=== PATIENT | female | born 1975 | race Caucasian/White ===

== ENCOUNTER 2024-09-27 15:00 | Outpatient (AMB) | payer OTHER, SELFPAY ==
--- NOTE | 2024-09-27 15:03 | A.OFFVIS_ITS ---
Vital Signs 09/27/24 15:18 Height 5 ft 2 in Weight 122 lb 2.177 oz BMI 22.3 BP 96/54 L Blood Pressure Location Lt brachial Position Sitting Pulse 68 Pulse Source Pulse Oximeter Pulse Oximetry (%) 97 Oxygen Delivery Method Room Air Intake Visit Reasons: Colonoscopy Screening Intake Note: Relevant Flags or Indicators ? Requires Tracer Bullet Charging Machine Operator? Serg Jo presents in office today for a scheduled colonoscopy consult -- First colo. CC; No recent labs, diagnostics, or med orders placed. ? Relevant GI Sx as reported per pt? None ? Hx of any recent surgeries? None ? Pertinent FMHx? Maternal Uncle - Colon Cancer Mother and sisters - Polypectomy. Tracer Bullet Charging Machine Operator Required: No Allergies No Known Allergies Allergy (Verified 09/27/24 15:18) HPI HPI Colonoscopy Screening: Details: 49 year old? female with no significant past medical history is here today for pre colonoscopy screening.? Patient was sent to us by hier PCP.? This is her first colonoscopy screening.? Patient denies any gastrointestinal symptoms in the past or at present.? Maternal uncle was diagnosed with colon cancer in his 60s. Patient never had anesthesia in the past..? Negative for history of sleep apnea.? Denies any history of cardiac, renal, pulmonary, or hepatic disease.?? No history of infectious? diseases like hepatitis A, B, C, HIV or tuberculosis.? Patient is not on any anticoagulation [facility] Social History (Updated 09/27/24 @ 15:[address] [facility]) Alcohol intake: never Patient Tobacco Use Status: Never used Tobacco Use of substances other than those prescribed or required for medical reasons: No Review of Systems Const Denies weight gain and Denies weight loss ENT Reports no additional complaints, Denies dysphagia and Denies odynophagia Card Reports no additional complaints Resp Reports no additional complaints GI Denies abdominal pain, Denies belching, Denies melena, Denies bloating, Denies change in bowel habits, Denies dysphagia, Denies excessive flatus, Denies dyspepsia, Denies heartburn, Denies diarrhea, Denies loose stools, Denies nausea, Denies odynophagia and Denies vomiting Musc Reports no additional complaints Neuro Reports no additional complaints Psych Reports no additional complaints Endo Reports no additional complaints Physical Exam Vital Signs: Last Vital Signs Pulse 68 09/27/24 15:18 BP 96/54 L 09/27/24 15:18 Pulse Ox 97 09/27/24 15:18 Oxygen Delivery Method Room Air 09/27/24 15:18 BMI result Body Mass Index 22.3 Const General: healthy appearing, no acute distress and well developed Nutritional Appearance: well nourished Orientation/consciousness: patient oriented x3 Resp Effort & Inspection: normal respiratory effort, able to speak in complete sentences, no tracheal deviation and symmetric chest movement Auscultation: clear to auscultation bilaterally Cardio Rate: regular rate GI Inspection: Yes normal to inspection and No distended Palpation (GI): Soft to palpation, not firm, nontender and No hepatosplenomegaly present Auscultation: normal bowel sounds General: Yes no CVA tenderness Back/Spine/Pelvis Back: no CVA tenderness Skin General skin exam: elasticity normal, turgor normal and dry skin Neuro General: patient oriented x3 Psych Appearance: grossly normal Mental Status: mental status grossly normal Assessment & Plan Assessment & Plan (1) Screen for colon cancer: Code(s): Z12.11 - Encounter for screening for malignant neoplasm of colon Plan Patient denies any GI, cardiac or respiratory symptoms.? Denies any issues with anesthesia in the past.? Denies any history of sleep apnea.? No history infectious diseases in the past or present.? Not on any anticoagulation therapy.? Family history of CRC.? Patient denies melena, hematochezia, unintentional weight loss or ribbon like stools.? Discussed at length the pre- procedure,? prep, diet & medications as well as what to expect prior, during and after the procedure.?? Stressed the importance of good bowel prep.? Recommended the use of Vaseline or Calmoseptine OTC & baby wipes with bowel movements to promote comfort.? ?Patient verbalizes understanding and agrees to plan of care.? She was given the opportunity to ask questions and all questions answered.? We will see her after the procedure.? Medications: New bisacodyl (Dulcolax (bisacodyl)) take 4 tabs at noon the day before your colonoscopy 20 mg (4 x 5 mg) PO ONCE 4 tabs 0RF 1 day Z12.11 - Encounter for screening for malignant neoplasm of colon polyethylene glycol 3350 (Miralax) As directed by gastroenterology department at [facility] 238 grams PO ONCE 238 grams 0RF Z12.11 - Encounter for screening for malignant neoplasm of colon Coding Level of Care Code New Pt Level 3 (60161) Diagnoses Screen for colon cancer Z12.11 Time Spent (min) 40 Comment 30 minutes spent with patient and additional 10 minutes spent reviewing her records
[2024-09-27 15:18] VITALS: BP 96/54; PULSE 68; O2SAT 97; BMI 22.3
== END 2024-09-27 16:00 | disposition home or self-care (01) ==
PROVIDERS: PCP Student in an Organized Health Care Education/Training Program; Visit Provider Nurse Practitioner Family
DX: Z12.11 Encounter for screening for malignant neoplasm of colon (principal); Z01.818 Encounter for other preprocedural examination
CPT/HCPCS: 99203

== ENCOUNTER → 2024-09-27 15:00 | Outpatient (BNVA) | payer OTHER, SELFPAY | PROVIDERS: PCP Student in an Organized Health Care Education/Training Program; Visit Provider Nurse Practitioner Family ==

== ENCOUNTER 2025-08-01 10:10 | Emergency (ER) | payer OTHER, SELFPAY ==
[2025-08-01 10:23] VITALS: BP 121/56; PULSE 70; RESP 18; TEMP 36.6; O2SAT 100; BMI 21.9
--- NOTE | 2025-08-01 10:32 | ED_ITS ---
HPI - Ear Problem General Chief complaint: Ear Problems Stated complaint: Q tip cotton stuck in ear Time Seen by Provider: 08/01/25 10:26 Source: patient Mode of arrival: ambulatory Limitations: no limitations History of Present Illness ED Provider: JUSTINA JIMENES PA-C HPI Narrative: 50-year-old female presents to the ED today with concerns of the end of a Q-tip stuck in right ear. States this occurred just prior to arrival in the ED. No hearing changes. No pain. No discharge. No other concerns. Related Data Previous Rx's ?Medication ?Instructions ?Recorded bisacodyl 5 mg tablet,delayed 20 mg (4 x 5 mg) PO ONCE 1 day #4 09/27/24 release (Dulcolax (bisacodyl)) tabs polyethylene glycol 3350 17 238 g PO ONCE #238 grams 1 11/27/23 gram/dose oral powder (Miralax) Allergies Allergy/AdvReac Type Severity Reaction Status Date / Time No Known Allergies Allergy Verified 08/01/25 10:24 Review of Systems Review of Systems: Yes all other systems are reviewed and are negative [facility] Past Medical History Attestation statement: The following information was validated with the patient. Source: old records reviewed and nursing notes reviewed Social History Social History Alcohol intake: never Patient Tobacco Use Status: Never used Tobacco Advance Directives: No Advance Directives Information Provided: Yes Do you have a plan to hurt others: No Plan Physical Exam Vital Signs: Vital Signs: Last Vital Signs Temp 97.9 F 08/01/25 10:50 Pulse 70 08/01/25 10:50 Resp 18 08/01/25 10:50 BP 121/56 L 08/01/25 10:50 Pulse Ox 100 08/01/25 10:50 O2 Del Method Room Air 08/01/25 10:50 BMI result Body Mass Index 21.9 vital signs stable General: Well appearing, in no acute distress. Skin: Warm, dry, intact. No rashes or lesions. Head: Normocephalic, atraumatic. EENT: Hearing is intact b/l. piece of cotton noted in left EAC. Cardiac: Chest wall symmetric. RRR Lungs: Normal respiratory effort without accessory muscle use Ext: Upper and lower extremities atraumatic Neuro: AOx3. Normal speech. Ambulating with steady gait. Procedures FB Removal Ear Location: ear canal (L) Foreign Body Suspected: other (cotton) TM intact pre-procedure: unable to visualize Foreign Body Removed: yes Foreign Body Removal Technique: forceps Tympanic Membrane Intact Post Procedure: Yes Patient Tolerated Procedure: well Complications: none Medical Decision Making Medical Decision Making MDM Narrative: 50-year-old female presents to the ED today with concerns of the end of a Q-tip stuck in right ear. vital signs stable. Noted cotton in left EAC, successfully removed w/ alligator forceps. No trauma to left EAC or TM. Hearing intact. Patient has remained stable throughout ED visit today. Discussed worrisome signs and symptoms and when to return to the ED. All questions answered at this time. Patient is agreeable with disposition and stable for discharge. Differential Diagnosis Differential Diagnoses: The differential diagnosis associated with the presentation includes as above. Admission/Observation not indicated. Social Determinants Patient?s care significantly limited by Social Determinants of Health including: Other Social Determinant of Health Critical Care Time Critical Care Time Critical Care Time: No Discharge Plan Discharge Clinical Impression: Foreign body in ear Patient Disposition: Home, Self-Care Instructions: Ear Foreign Body (ED) Additional Instructions: You were evaluated in the ED today for Q-tip stuck in your right ear. This was removed today. There is no residual trauma to the ear or ear drum. Follow up with your primary care as needed. Return with any new or worsening symptoms. In the case of an emergency call 911. Prescriptions: No Action bisacodyl [Dulcolax (bisacodyl)] 5 mg tablet,delayed release (DR/EC) 20 mg PO ONCE 1 Days Qty: 4 0RF Rx Instructions: take 4 tabs at noon the day before your colonoscopy polyethylene glycol 3350 [Miralax] 17 gram/dose powder 238 g PO ONCE Qty: 238 0RF Rx Instructions: As directed by gastroenterology department at [facility] Referrals: Sonia Avalos MD [Primary Care Provider, Family Practice] Interventions: ED Discharge Assessment Last Done: 08/01/25 10:50 Discharge Date/Time: 08/01/25 10:50 Print Language: Tristanian
[2025-08-01 10:50] VITALS: BP 121/56; PULSE 70; RESP 18; TEMP 36.6; O2SAT 100
--- OUTSIDE RECORDS SUMMARY | 2025-08-01 13:07 | XMS_ITS | Encounter Summary ---
Author Organization [facility] Address [address] [place] [id number] Phone Care Team Providers Care Us Customs And Border Officer Name Role Phone Sonia Avalos MD Primary Care Provider [phone] [phone] Encounter Details Date Type Department Care Team (Late st Contact Info) Description 03/18/2022 Ancillary Orders [facility],Outside Imaging [address] [place] [address] System, Provider Not In, [facility] [address] [address] Social History Tobacco Use Types Packs/Day Years Used Date Smoking Tobacco: Never Assessed Child or Family Care Answer Date Record ed Do you have problems with on e of the following making it difficult for you to work, study, or receive health care? No 10/09/2021 Education Answer Date Recorded Are you interested in help w ith more adult education (for example, completing high school, GED, job training, learning the Turkish language, technical skills, or developing parenting skills)? No 10/09/2021 Food Answer Date Recorded Within the past 6 months we worried whether our food would run out before we got money to buy more. Never True 10/09/2021 Within the past 6 months the food we bought just didn't last and we didn't have enough money to get more. Never True Residential Stability Answer Date Recor ded What is your housing situation today? I have adalberto sing 10/09/2021 How many times have you move d in the past 12 months? Zero (I did not move) 10/09/2021 Paying for Meds Answer Date Recorded Do you have trouble paying for medicines? No 10/09/2021 Paying Utility Bills Answer Date Record ed Do you have trouble paying your heating or elect ricity bill? No 10/09/2021 Transportation Answer Date Recorded Has the lack of transportati on kept you from medical appointments or from getting medications? No 10/09/2021 Unemployment Answer Date Recorded Are you currently unemployed or working on a part-time or temporary basis, and looking for work? No 10/09/2021 Comments No Sex and Gender Information Value Date Recorded Sex Assigned at Not on file Legal Sex Female 9:32 PM EDT Gender Identity Not on file Sexual Orientation Not on file documented as of this encounter Plan of Treatment Not on file documented as of this encounter Results * Mammogram Outside (No Interpretation) (09/14/2017 12:05 AM EDT) Narrative SYSTEMGENERATED, DOCUMENTATION - 03/18/2022 7:16 AM EDT This study is for PACS storage only and not for interpretation. us Provider Not In System PhD IMG OUTSIDE IMAGING W /OUT INTERPRETATION Final Result documented in this encounter Visit Diagnoses Not on filedocumented in this encounter Additional Health Concerns Assessment Noted Time PHQ-2 Depression Total Score: 0 10/09/20 21 10:36 AM EST documented as of this encounter Care Teams Us Customs And Border Officer Relationship Specialty Start Date End Date Sonia Avalos MD [address] [place] [address], [address] [place] [address] [email or web address] PCP - General Family Medicine 07/02/21 documented as of this encounter Additional Source Comments The information contained in this document represents components of the legal health record. It is not the complete legal health record.[facility]
--- OUTSIDE RECORDS SUMMARY | 2025-08-01 13:07 | XMS_ITS | Encounter Summary ---
Author Organization [facility] Address [address] [facility] [address] [place] [address] Phone Care Team Providers Care Power System Operator Name Role Phone Sonia Avalos MD Primary Care Provider [phone] Encounter Details Date Type Department Care Team (Late st Contact Info) Description 01/28/2022 Procedure Pass [facility] - [address] [place] [address] Social History Tobacco Use Types Packs/Day Years [...] high school, GED, job training, learning the Nepalese language, technical skills, or developing parenting skills)? [...] on file documented as of this encounter Visit Diagnoses Not on filedocumented in this encounter Additional Health Concerns Assessment Noted Time PHQ-2 Depression Total Score: 0 10/09/20 21 10:36 AM EST documented as of this encounter Care Teams Power System Operator Relationship Specialty Start Date End Date Sonia Avalos MD [address] [place] [address], [address] [place] [address] [email or web address] PCP - General Family Medicine 07/02/21 documented as of this encounter Additional Source Comments The information contained in this document represents components of the legal health record. It is not the complete legal health record.[facility]
--- OUTSIDE RECORDS SUMMARY | 2025-08-01 13:08 | XMS_ITS | Encounter Summary ---
Author Organization [facility] Address [address] [place] [address] Phone Care Team Providers Care Corner Brace Block Machine Operator Name Role Phone Sonia Avalos MD Primary Care Provider [phone] [phone] Encounter Details Date Type Department Care Team (Late st Contact Info) Description 03/17/2022 Ancillary Orders [facility],Outside Imaging [address] [place] [address] System, Provider Not In, [facility] [address] [address] Social History Tobacco Use Types Packs/Day Years [...] high school, GED, job training, learning the Bahamian language, technical skills, or developing parenting skills)? [...] Time PHQ-2 Depression Total Score: 0 10/09/20 10:36 AM EST documented as of this encounter Care Teams Corner Brace Block Machine Operator Relationship Specialty Start Date End Date Sonia Avalos MD [address] [place] [address], [facility] [address] [place] [address] [email or web address] PCP - General Family Medicine 07/02/21 documented as of this encounter Additional Source Comments The information contained in this document represents components of the legal health record. It is not the complete legal health record.[facility]
--- OUTSIDE RECORDS SUMMARY | 2025-08-01 13:08 | XMS_ITS | Encounter Summary ---
Author Organization [facility] Address [address] [facility] [address] [place] [address] Phone Care Team Providers Care Human Resources Services Specialist Name Role Phone Sonia Avalos MD Primary Care Provider [phone] Encounter Details Date Type Department Care Team (Late st Contact Info) Description 09/07/2023 Procedure Pass [facility] - [address] [place] [address] Social History Tobacco Use Types Packs/Day Years [...] high school, GED, job training, learning the British language, technical skills, or developing parenting skills)? [...] basis, and looking for work? No 10/09/2021 Digital Access Answer Date Recorded No 04/17/2023 No 04/17/2023 Reliable internet access at home? Not on file 04/17/2023 Device with a working camera? Not on file Comments No Sex and Gender Information Value [...] documented as of this encounter Care Teams Human Resources Services Specialist Relationship Specialty Start Date End Date Sonia Avalos MD [address] [place] [address], [address] [place], [place] [id number] [email or web address] PCP - General Family Medicine 07/02/21 documented as of this encounter Additional Source Comments The information contained in this document represents components of the legal health record. It is not the complete legal health record.[facility]
--- OUTSIDE RECORDS SUMMARY | 2025-08-01 13:08 | XMS_ITS | Encounter Summary ---
Author Organization [facility] Address [address] [place] [address] Phone Care Team Providers Care Ancillary Services Manager Name Role Phone Sonia Avalos MD Primary Care Provider [phone] Encounter Details Date Type Department Care Team (Late st Contact Info) Description 03/18/2022 Ancillary Orders [facility],Outside Imaging [address] [place] [address] System, Provider Not In, [facility] [address] [address] Social History Tobacco Use Types Packs/Day Years [...] high school, GED, job training, learning the Finnish language, technical skills, or developing parenting skills)? [...] documented as of this encounter Results * US Breast Outside (No Interpretation) (09/14/2017 12:00 AM EDT) Narrative SYSTEMGENERATED, DOCUMENTATION - 03/18/2022 7:15 AM EDT This study is for PACS storage only and not for interpretation. us Provider Not In System PhD IMG OUTSIDE IMAGING W /OUT INTERPRETATION Final Result documented in this encounter Visit Diagnoses Not on filedocumented in this encounter Additional Health Concerns Assessment Noted Time PHQ-2 Depression Total Score: 0 10/09/20 21 10:36 AM EST documented as of this encounter Care Teams Ancillary Services Manager Relationship Specialty Start Date End Date Sonia Avalos MD [address] [place] [address], [address] [place] [address] [email or web address] PCP - General Family Medicine 07/02/21 documented as of this encounter Additional Source Comments The information contained in this document represents components of the legal health record. It is not the complete legal health record.[facility]
--- OUTSIDE RECORDS SUMMARY | 2025-08-01 13:08 | XMS_ITS | Encounter Summary ---
Author Organization [facility] Address [address] [facility] [address] [place] [address] Phone Care Team Providers Care Hydrostatic Tubing Tester Name Role Phone Sonia Avalos MD Primary Care Provider [phone] Encounter Details Date Type Department Care Team (Late st Contact Info) Description 01/28/2022 Transcribe Orders Virtual Department [address] [place] [address] Sonia Avalos MD [address] [place] [address], [address] [place] [address] [email or web address] Breast screening (Primary Dx) Social History Tobacco Use Types Packs/Day Years [...] high school, GED, job training, learning the Bulgarian language, technical skills, or developing parenting skills)? [...] and looking for work? No 10/09/2021 Comments Unknown Sex and Gender Information Value Date Recorded Sex Assigned at Not on file Legal Sex Female 9:32 PM EDT Gender Identity Not on file Sexual Orientation Not on file documented as of this encounter Plan of Treatment Not on file documented as of this encounter Results * BI MAMMOGRAM SCREENING WITH TOMOSYNTHESIS WITH CAD (BILATERAL) (02/24/2022 2:03 PM EDT) Anatomical Region Laterality Modality Breast Left, Breast Right, Breast Bilateral Bila teral Mammography 03/10/2022 12:5 1 PM EDT Impressions 03/10/2022 12:53 PM EDT No mammographic evidence of malignancy. Recommend annual surveillance. BI-RADS CATEGORY: 2 - Benign finding. DENSITY: The breast tissue is extremely dense, which lowers the sensitivity of mammography. Narrative 03/10/2022 12:53 PM EDT 46-year-old female with no current breast symptoms. Comparison made to previous on 04/08/2016 and 01/02/2014. Interpretation made in conjunction with computer-aided detection and tomosynthesis. The breasts are extremely dense, which lowers the sensitivity of mammography. Mild increase in number of benign bilateral scattered calcifications. There are no suspicious masses, areas of architectural distortion, or suspicious clusters of microcalcifications. Procedure Note Yamil Brumfield MD - 03/10/2022 46-year-old female with no current breast symptoms. Comparison made toprevious on 04/08/2016 and 01/02/2014. Interpretation made in conjunctionwith computer-aided detection and tomosynthesis. The breasts are extremely dense, which lowers the sensitivity ofmammography. Mild increase in number of benign bilateral scatteredcalcifications. There are no suspicious masses, areas of architectural distortion, orsuspicious clusters of microcalcifications. IMPRESSION: No mammographic evidence of malignancy. Recommend annual surveillance. BI-RADS CATEGORY: 2 - Benign finding. DENSITY: The breast tissue is extremely dense, which lowers thesensitivity of mammography. us Sonia Avalos MD IMG MG EXAMS Final Res ult documented in this encounter Visit Diagnoses Diagnosis Breast screening- Primary Breast screening, unspecified Breast screening Breast screening, unspecified documented in this encounter Additional Health Concerns Assessment Noted Time PHQ-2 Depression Total Score: 0 10/09/20 21 10:36 AM EST documented as of this encounter Care Teams Hydrostatic Tubing Tester Relationship Specialty Start Date End Date Sonia Avalos MD [address] [place] [address], [address] [place] [address] [email or web address] PCP - General Family Medicine 07/02/21 documented as of this encounter Additional Source Comments The information contained in this document represents components of the legal health record. It is not the complete legal health record.[facility]
--- OUTSIDE RECORDS SUMMARY | 2025-08-01 13:08 | XMS_ITS | Clinical Summary ---
Author Organization [facility] Address [address] [facility] [address] [place] [address] Phone Care Team Providers Care Editing Intern Name Role Phone Sonia Avalos MD Primary Care Provider +1 -[phone] Allergies No known active allergies Medications No known medications Active Problems Problem Noted Date Diagnosed Date Visit for suture removal 07/26/2024 Assessment & Plan (07/26/2024 10:31 AM EDT): Deysi presents for suture removal. All #5 sutures were removed today of the right shoulder-no issues or complications. Steri-Strips were placed over top. I reviewed ways to decrease scarring with vitamin E. We discussed sunscreen. I informed her that the biopsy was benign and this was reassuring. I informed her to call if there are any other issues or concerns. She understands and agrees. Vegan 10/09/2021 Chronic pain of both knees 10/09/2021 Assessment & Plan (10/09/2021 10:01 PM EST): Worse w/ sitting and w/ insomnia. I think low risk for autoimmune disease, will check labs today to evaluate for structural cause, also discussed neural circuit pain and nonstructural causes. Follow up once labs are done. Migraine Assessment & Plan (10/09/2021 9:59 PM EST): Induced by lack of sleep, no red flags. Follow up as needed. Breast lump Overview (10/09/2021): left breast in 20's - biopsy benign Assessment & Plan (10/09/2021 10:00 PM EST): S/P breast biopsies that have been benign. Would like to continue screening mammograms prior to 48 which I have ordered. Resolved Problems Problem Noted Date Diagnosed Date Resolved Date Skin lesion of right upper extremity 07/14/2024 07/26/2024 Assessment & Plan (07/14/2024 11:10 AM EDT): Deysi Layton is a 49 y.o. year old female presenting for a skin lesion removal of right shoulder region. Consent was signed and time out was performed. The patient was prepped and draped in the normal sterile fashion. Using 2% lidocaine with epinephrine 2 cc's was used with good anesthetics. Using a 15 blade scalpel the 8 mm in diameter skin lesion was removed without any complications. Measurements: Lesion at its widest point: 1.8 cm Narrowest margin to the incision line, was 1 cm (times 2): 2 cm. The total excised diameter: 1.8 cm + 2 cm = 3.8 cm. The defect was sutured using 4-0 monofilament with # 5 sutures placed. Minimal blood loss. No complications. I sent the biopsy out to pathology today-I will update her with the result. Wound care was discussed. A bandaid was placed overtop. she will follow up in 12 days for suture removal. she understands and agrees. Immunizations Immunization Administration Dates Next Due COVID-19 (Pre-09/13) Pfizer Vaccine, mRNA, PF ,03/11/2021 Tdap 08/08/2013 Family History Medical History Relation Comments Ovarian cancer Maternal Aunt Multiple myeloma Maternal Grandmother Relation Status Comments Maternal Aunt Maternal Grandmother Social History Tobacco Use Types Packs/Day Years Used Date Smoking Tobacco: Never Smokeless Tobacco: Never Child or Family Care Answer Date Record ed Do you have problems with on e of the following making it difficult for you to work, study, or receive health care? No 10/09/2021 Education Answer Date Recorded Are you interested in more education? Not on jasmyne e 10/19/2023 Are you concerned about learning? Not on file 10/19/2023 No 10/19/2023 No 10/19/2023 Food Answer Date Recorded Within the past [...] on file Sexual Orientation Not on file Last Filed Vital Signs Vital Sign Reading Time Taken Comments Blood Pressure 116/66 07/14/2024 10:28 AM EDT Pulse 57 07/26/2024 10:16 AM EDT Temperature 36.5 C (97.7 F) 07/26/2024 10:16 AM EDT Respiratory Rate - - Oxygen Saturation 100% 07/26/2024 10:16 AM EDT Inhaled Oxygen Concentration - - Weight 54.4 kg (120 lb) 07/14/2024 10:28 AM EDT Height 157.5 cm (5' 2 ) 07/26/2024 10:16 AM EDT Body Mass Index 21.95 07/14/2024 10:28 AM EDT Plan of Treatment Health Maintenance Due Date Last Done Comments LIPID PANEL 1973 HEPATITIS C SCREENING 1991 HIV ONE-TIME SCREENING (18-65 YEARS) 1991 PAP SMEAR 02/16/2011 02/17/2008 COLOGUARD 2018 FIT TEST 2018 FOBT 2018 SIGMOIDOSCOPY 2018 VIRTUAL COLONOSCOPY 2018 DEPRESSION SCREENING 10/09/2022 10/09/2021 PNEUMOCOCCAL VACCINES (50+ years) (1 of 1 - PCV) 2023 ZOSTER VACCINES (1 of 2) 2023 Adult Td,Tdap Booster 08/08/2023 08/08/2013 INFLUENZA VACCINE (#1) 2025 COVID-19 VACCINE ( season) 2025 11/18/2021, 04/01/2021, 03/11/2021 MAMMOGRAM 02/27/2026 02/28/2024, 04/0 03/2022, 09/14/2017, Additional history exists COLONOSCOPY 09/27/2034 09/27/2024 COLORECTAL CANCER SCREENING 09/27/2034 SMOKING STATUS SCREENING (Once After 26 Yrs) Completed 07/14/2024 HEPATITIS A VACCINES Aged Out No long er eligible based on patient's age to complete this topic HIB VACCINES Aged Out No longer eligi ble based on patient's age to complete this topic MENINGOCOCCAL VACCINES (ACWY) Aged Out No longer eligible based on patient's age to complete this topic MENINGOCOCCAL VACCINES (B) Aged Out N o longer eligible based on patient's age to complete this topic Medical Devices Not on file Procedures Procedure Name Priority Date/Time Associated Diagnosis Comments COLONOSCOPY FOR RESULT ENTRY ONLY Routine 09/27/2024 10:43 AM EST BI MAMMOGRAM SCREENING WITH TOMOSYNTHESIS WITH CAD (BILATERAL) Routine 02/28/2024 10:55 AM EDT Encounter for screening mammogram for malignant neoplasm of breast from Last 3 Months or Most Recently Relevant to Health Maintenance Results * COLONOSCOPY FOR RESULT ENTRY ONLY (09/27/2024 10:43 AM EST) us Historical Provider HEALTH MAINTENANCE Edited Result - Final * BI MAMMOGRAM SCREENING WITH TOMOSYNTHESIS WITH CAD (BILATERAL) (02/28/2024 10:55 AM EDT) Anatomical Region Laterality Modality Breast Left, Breast Right, Breast Bilateral Bila teral Mammography 03/01/2024 1:19 PM EDT Impressions 03/01/2024 1:54 PM EDT No mammographic evidence of malignancy in either breast. Annual screening mammography is recommended. BI-RADS 1 NEGATIVE The patient will be notified of the results and recommendations. Narrative 03/01/2024 1:54 PM EDT BI MAMMOGRAM SCREENING WITH TOMOSYNTHESIS WITH CAD (BILATERAL) Additional patient information: Screening. COMPARISON: Comparison is made with relevant prior imaging. Breast composition: The breast tissue is extremely dense which lowers the sensitivity of mammography. FINDINGS: There has been no change in the mammographic findings since previous examination. No abnormal masses, suspicious calcifications, or other significant findings are identified mammographically in either breast. Procedure Note Ofelia Myers MD, PhD - 03/01/2024 BI MAMMOGRAM SCREENING WITH TOMOSYNTHESIS WITH CAD (BILATERAL) Additional patient information: Screening. COMPARISON: Comparison is made with relevant prior imaging. Breast composition: The breast tissue is extremely dense which lowers thesensitivity of mammography. FINDINGS: There has been no change in the mammographic findings since previousexamination. No abnormal masses, suspicious calcifications, or other significantfindings are identified mammographically in either breast. IMPRESSION: No mammographic evidence of malignancy in either breast. Annual screening mammography is recommended. BI-RADS 1 NEGATIVE The patient will be notified of the results and recommendations. Coco Birch MD IMG MG EXAMS Final Re sult from Last 3 Months or Most Recently Relevant to Health Maintenance [place] [address] [place] [address] [place] [place] [address] [place] [place] [address] [place] [address] [facility] HMO [address] [place] [address] [facility] HMO [facility] Address: [place] [id number] Care Teams Editing Intern Relationship Specialty Start Date End Date Sonia Avalos MD [address] [place] [address], [address] [place] [address] PCP - General Family Medicine 07/02/21 Additional Source Comments The information contained in this document represents components of the legal health record. It is not the complete legal health record.[facility]
== END 2025-08-01 10:50 | disposition home or self-care (01) ==
PROVIDERS: Emergency Provider Emergency Medicine; PCP Student in an Organized Health Care Education/Training Program
DX: T16.1XXA Foreign body in right ear, initial encounter (principal); W44.8XXA Other foreign body entering into or through a natural orifice, initial encounter; Y93.9 Activity, unspecified; Y92.9 Unspecified place or not applicable; Y99.9 Unspecified external cause status
CPT/HCPCS: 99282; 99283

== ENCOUNTER 2025-10-23 10:58 | Day surgery (SDC) | payer OTHER, SELFPAY ==
--- OUTSIDE RECORDS SUMMARY | 2025-10-02 14:05 | XMS_ITS | Clinical Summary ---
Author Organization [facility] Address [address] [facility] [address] [place] [address] Phone Care Team Providers Care Loss Prevention Lead Name Role Phone Sonia Avalos MD Primary Care Provider +1 [phone] Allergies No known active allergies Medications No [...] for suture removal. she understands and agrees. Encounters Date Type Department Care Team Description 09/26/2025 Telephone [facility] [address] [place], [place] [phone] Sonia Avalos MD Forms & Paperwork (OV notes [id number]) 09/25/2025 Transcribe Orders Virtual Department [address] [place] [address] Sonia Avalos MD from Last 3 Months Immunizations Immunization Administration Dates Next Due COVID-19 [...] 08/08/2013 INFLUENZA VACCINE (#1) 2025 COVID-19 VACCINE (2024- season) 2025 11/18/2021, 04/01/2021, 03/11/2021 MAMMOGRAM 02/27/2026 02/28/2024, 04/0 03/2022, 09/14/2017, Additional history exists COLONOSCOPY 09/27/2034 09/27/2024 COLORECTAL CANCER SCREENING 09/27/2034 RSV VACCINE (1 - 1-dose 75+ series) 02/27/2048 SMOKING STATUS SCREENING (Once After 26 Yrs) [...] Procedure Name Priority Date/Time Associated Diagnosis Comments HM COLONOSCOPY FOR RESULT ENTRY ONLY Routine 09/27/2024 10:43 AM EST BI MAMMOGRAM SCREENING WITH TOMOSYNTHESIS WITH CAD (BILATERAL) Routine 02/28/2024 10:55 AM EDT Encounter for screening mammogram for malignant neoplasm of breast from Last 3 Months or Most Recently Relevant to Health Maintenance Results * HM COLONOSCOPY FOR RESULT ENTRY ONLY (09/27/2024 10:43 [...] Most Recently Relevant to Health Maintenance Insurance [address] [place], [place] [address] [place] [address] [place] [address] [place] [address] [place] [address] [facility] [address] [place] [place] [address] [facility] HMO Care Teams Loss Prevention Lead Relationship Specialty Start Date End Date Sonia Avalos MD [address] [place] [address] [address] [place] [address] [email or web address] PCP - General Family Medicine 07/02/21 Additional Source Comments The information contained in this document represents components of the legal health record. It is not the complete legal health record.[facility]
--- OUTSIDE RECORDS SUMMARY | 2025-10-02 14:05 | XMS_ITS | Encounter Summary ---
Author Organization [facility] Address [address] [place] [address] Phone Care Team Providers Care Nurse Transplant Name Role Phone Sonia Avalos MD Primary Care Provider [phone] [phone] Encounter Details Date Type Department Care Team (Late st Contact Info) Description 03/17/2022 Ancillary Orders [facility],Outside Imaging [address] [place] [address] System, Provider Not In, [facility] [address] [address] Social History Tobacco Use Types Packs/Day Years [...] high school, GED, job training, learning the Wallisian language, technical skills, or developing parenting skills)? [...] documented as of this encounter Care Teams Nurse Transplant Relationship Specialty Start Date End Date Sonia Avalos MD [address] [place] [address], [facility] [address] [place] [address] [email or web address] PCP - General Family Medicine 07/02/21 documented as of this encounter Additional Source Comments The information contained in this document represents components of the legal health record. It is not the complete legal health record.[facility]
--- OUTSIDE RECORDS SUMMARY | 2025-10-02 14:05 | XMS_ITS | Encounter Summary ---
Author Organization [facility] Address [address] [place] [address] Phone Care Team Providers Care Checker And Packer Name Role Phone Sonia Avalos MD Primary Care Provider [phone] [phone] Encounter Details Date Type Department Care Team (Late st Contact Info) Description 03/18/2022 Ancillary Orders [facility],Outside Imaging [address] [place] [address] System, Provider Not In, [facility] [address] [address] Social History Tobacco Use Types Packs/Day Years [...] high school, GED, job training, learning the South African language, technical skills, or developing parenting skills)? [...] documented as of this encounter Care Teams Checker And Packer Relationship Specialty Start Date End Date Sonia Avalos MD [address] [place] [address], [address] [place] [address] [email or web address] PCP - General Family Medicine 07/02/21 documented as of this encounter Additional Source Comments The information contained in this document represents components of the legal health record. It is not the complete legal health record.[facility]
--- OUTSIDE RECORDS SUMMARY | 2025-10-02 14:05 | XMS_ITS | Encounter Summary ---
Author Organization [facility] Address [address] [facility] [address] [place] [address] Phone Care Team Providers Care Quality Process Engineer Name Role Phone Sonia vAalos MD Primary Care Provider [phone] [phone] Encounter Details Date Type Department Care Team (Late st Contact Info) Description 01/28/2022 Transcribe Orders Virtual Department [address] [place] [address] Sonia Avalos MD [address] [place] [address], [address] [place] [address] [email or web address] Breast screening (Primary Dx) Social History Tobacco [...] high school, GED, job training, learning the Mexican language, technical skills, or developing parenting skills)? [...] documented as of this encounter Care Teams Quality Process Engineer Relationship Specialty Start Date End Date Sonia Avalos MD [address] [place] [address], [address] [place] [address] [email or web address] PCP - General Family Medicine 07/02/21 documented as of this encounter Additional Source Comments The information contained in this document represents components of the legal health record. It is not the complete legal health record.[facility]
--- OUTSIDE RECORDS SUMMARY | 2025-10-02 14:05 | XMS_ITS | Encounter Summary ---
Author Organization [facility] Address [address] [facility] [address] [place] [address] Phone Care Team Providers Care Certified Adapted Physical Educator Name Role Phone Sonia Avalos MD Primary Care Provider +1 -[phone] Encounter Details Date Type Department Care Team (Late st Contact Info) Description 09/25/2025 Transcribe Orders Virtual Department [address] [place] [address] Sonia Avalos MD [address] [place] [address], [address] [place] [address] [email or web address] Social History Tobacco Use Types Packs/Day Years [...] your housing situation today? I have adalberto briscoe 10/09/2021 How many times have you move [...] documented as of this encounter Care Teams Certified Adapted Physical Educator Relationship Specialty Start Date End Date Sonia Avalos MD [address] [place] [address], [address] [place] [address] [email or web address] PCP - General Family Medicine 07/02/21 documented as of this encounter Additional Source Comments The information contained in this document represents components of the legal health record. It is not the complete legal health record.[facility]
--- OUTSIDE RECORDS SUMMARY | 2025-10-02 14:05 | XMS_ITS | Encounter Summary ---
Author Organization [facility] Address [address] [facility] [address] [place] [address] Phone Care Team Providers Care Plate Grainer Name Role Phone Sonia Avalos MD Primary Care Provider [phone] [phone] Reason for Visit * Reason Onset Date Comments Forms & Paperwork 09/26/2025 OV notes [id number] Encounter Details Date Type Department Care Team ([facility] st Contact Info) Description 09/26/2025 Telephone [facility] [address] [place] [address] Sonia Avalos MD [address] [place] [address] [address] [place] [address] [email or web address] Forms & Paperwork (OV notes [id number]) Social History Tobacco Use Types Packs/Day Years [...] on file documented as of this encounter Progress Notes * Bettie Parker MA - 09/26/2025 3:49 PM EST Ov notes faxed, confirmation received * Noa Patterson - 09/26/2025 8:54 AM EST CD PEN Top Smart Phrases: Fax Request Name of caller, if not the patient, AND where they are calling from: [facility] Name of Facility fax is being sent to: [facility] Document(s) requested: OV notes 07/26/2024 [facility] Call Center CSS Agent (Please do not reply to this user, as this inbox is not monitored. Thank you.) Thank you. documented in this encounter Plan of Treatment Not on file documented as of this encounter Visit Diagnoses Not on filedocumented in this encounter Additional Health Concerns Assessment Noted Time PHQ-2 Depression Total Score: 0 10/09/20 21 10:36 AM EST documented as of this encounter Care Teams Plate Grainer Relationship Specialty Start Date End Date Sonia Avalos MD [address] [place] [address], [address] [place] [address] [email or web address] PCP - General Family Medicine 07/02/21 documented as of this encounter Additional Source Comments The information contained in this document represents components of the legal health record. It is not the complete legal health record.[facility]
--- OUTSIDE RECORDS SUMMARY | 2025-10-02 14:05 | XMS_ITS | Encounter Summary ---
Author Organization [facility] Address [address] [place] [address] Phone Care Team Providers Care Nurse Emergency Room Name Role Phone Sonia Avalos MD Primary Care Provider [phone] [phone] Encounter Details Date Type Department Care Team (Late st Contact Info) Description 03/18/2022 Ancillary Orders [facility],Outside Imaging [address] [place] [address] System, Provider Not In, [facility] [address] [address] Social History Tobacco Use Types Packs/Day Years [...] high school, GED, job training, learning the Armenian language, technical skills, or developing parenting skills)? [...] as of this encounter Care Teams Nurse Emergency Room Relationship Specialty Start Date End Date Sonia Avalos MD [address] [place] [address], [address] [place] [address] [email or web address] PCP - General Family Medicine 07/02/21 documented as of this encounter Additional Source Comments The information contained in this document represents components of the legal health record. It is not the complete legal health record.[facility]
--- OUTSIDE RECORDS SUMMARY | 2025-10-02 14:05 | XMS_ITS | Encounter Summary ---
Author Organization [facility] Address [address] [facility] [address] [place] [address] Phone Care Team Providers Care Branch Service Representative Name Role Phone Sonia Avalos MD Primary Care Provider [phone] -[phone] Encounter Details Date Type Department Care Team (Late st Contact Info) Description 09/07/2023 Procedure Pass [facility] [address] [place] [address] Social History Tobacco Use Types Packs/Day Years [...] high school, GED, job training, learning the Surinamese language, technical skills, or developing parenting skills)? [...] documented as of this encounter Care Teams Branch Service Representative Relationship Specialty Start Date End Date Sonia Avalos MD [address] [place] [address], [address] [place], [place] [id number] [email or web address] PCP - General Family Medicine 07/02/21 documented as of this encounter Additional Source Comments The information contained in this document represents components of the legal health record. It is not the complete legal health record.[facility]
--- OUTSIDE RECORDS SUMMARY | 2025-10-02 14:05 | XMS_ITS | Encounter Summary ---
Author Organization [facility] Address [address] [facility] [address] [place] [address] Phone Care Team Providers Care Meter Reader Chief Name Role Phone Sonia Avalos MD Primary Care Provider +1 [phone] Encounter Details Date Type Department Care Team (Late st Contact Info) Description 01/28/2022 Procedure Pass [facility] - [address] [place] [address] Social History Tobacco Use Types Packs/Day Years [...] high school, GED, job training, learning the Malian language, technical skills, or developing parenting skills)? [...] documented as of this encounter Care Teams Meter Reader Chief Relationship Specialty Start Date End Date Sonia Avalos MD [address] [place] [address], [address] [place] [address] [email or web address] PCP - General Family Medicine 07/02/21 documented as of this encounter Additional Source Comments The information contained in this document represents components of the legal health record. It is not the complete legal health record.[facility]
--- NOTE | 2025-10-17 13:33 | P.CONAN_ITS ---
Documented by User: Jonelle Vaughan NP 10/17/25 13:33 HPI - Anesthesia Eval Consult details Narrative: 50 yr old female for colonoscopy [facility] Past Medical History Medical History No pertinent past medical history Surgical History Surgical History No pertinent past surgical history Social History Social History Alcohol intake: never Patient Tobacco Use Status: Never used Tobacco Use of substances other than those prescribed or required for medical reasons: No Are you DNR?: No Advance Directives: No Advance Directives Information Provided: Yes Meds Allergies Allergy/AdvReac Type Severity Reaction Status Date / Time No Known Allergies Allergy Verified 10/23/25 11:28 Home Medications ?Medication ?Instructions ?Recorded ?Confirmed ?Last Taken ?Type No Known Home Meds 10/23/25 10/23/25 Un known History Documented by User: Rajat Martinez MD 10/23/25 11:48 [facility] Past Medical History Medical History No pertinent past medical history Family History Family history of problems with anesthesia: No Surgical History Surgical History No pertinent past surgical history History of Problems with Anesthesia: No Social History Social History Alcohol intake: never Patient Tobacco Use Status: Never used Tobacco Use of substances other than those prescribed or required for medical reasons: No Are you DNR?: No Advance Directives: No Advance Directives Information Provided: Yes Meds Allergies Allergy/AdvReac Type Severity Reaction Status Date / Time No Known Allergies Allergy Verified 10/23/25 11:28 Home Medications ?Medication ?Instructions ?Recorded ?Confirmed ?Last Taken ?Type No Known Home Meds 10/23/25 10/23/25 Un known History Exam Airway Mallampati Class: II TM Dist: >3cm Neck ROM: Full Assessment and Plan Assessment Anesthesia Assessment: Anesthesia Plan Discussed and Chart Reviewed Final Anesthetic Review Family History of Problems with Anesthesia: No History of Problems with Anesthesia: No NPO: Yes ASA Class: I Final Preanesthetic Review: No Changes in Pt Med Stat, Meds/Allgs Chart Reviewed, Consent Obtained/Reviewed and Anes Risks/Benef Reviewed Patient Risk: Low Procedure Risk: Low Anesthetic Plan Anesthetic Plan: MAC: Disposition: Standard PACU
[2025-10-23 11:09] VITALS: BMI 23.1
--- NOTE | 2025-10-23 11:11 | MHC.SHP ---
Pre-Procedural Eval Section A - 24 Hr Update-Section A only Date of Service: 10/23/25 Section B - Complete if H&P > 30 days Chief Complaint: screening Present Medications: see Short Stay Collaborative assessment Medical History: No relevant PMH History of Previous Operations: No relevant previous surgery Allergies: Allergies Allergy/AdvReac Type Severity Reaction Status Date / Time No Known Allergies Allergy Verified 08/01/25 10:24 Review of Systems Review of Systems Comment: Ten point ROS negative Exam Exam Comment: Gen appear: No acute distress HEENT: no icterus Chest: No overt resp distress Abd: soft, nontender, nondistended Psych: Stable affect, answering questions appropriately Neuro: A/Ox3 noted to move all extremities spontaneously Ext: no peripheral edema Plan Diagnosis/Plan: Unchanged I have reviewed the history and physical and performed a pertinent physical examination on my patient. No changes have occurred unless specified. Time Spent With Patient Time: Total time managing care of this patient today ____ minutes.
[2025-10-23 11:25] VITALS: BP 104/57; PULSE 64; RESP 14; TEMP 36.5; O2SAT 99
[2025-10-23] MEDS: Lactated Ringers 1,000 ML 100 ML IVCONT (11:26)
--- NOTE | 2025-10-23 12:02 | P.OPN-COLO_ITS ---
Colonoscopy Operative Note Operative Note Date of Service: 10/23/25 Narrative: Procedure: Colonoscopy Indication: Screening Endoscopist: Rosanne Leone MD Anesthesia Provider: Dr Rajat Martinez Anesthesia type: MAC Instrument: Olympus [id number]-H190L Consent: Indication, risks vs benefits, and alternatives were discussed with the patient who gave written informed consent to proceed. EKG, pulse, pulse oximetry and blood pressure were monitored throughout the procedure. Please see anesthesia flowsheet. Procedure: The patient was brought to the procedure room and placed in the left lateral decubitus position. IV medications were administered by the anesthesia provider in attendance. A digital rectal exam was performed which was normal. A distal attachment cap was affixed to the tip of the colonoscope which was then inserted through the anus and advanced through the colon to the cecum at 75 c m,and terminal ileum. Appendiceal orifice and ileocecal valve were identified. Mucosa was carefully examined under high definition white light as the instrument was slowly withdrawn in a retrograde panoramic fashion. Retroflexion was performed in rectum. The procedure was not difficult. There were no immediate obvious complications. The quality of the prep was BBPS: 3+3+3 = adequate Withdrawal time 10 minutes. Limitations: No limitations. Findings: Mucosa: Normal to cecum and terminal ileum. Protruding lesions: * 1 sessile polyp of size 2 mm in descending colon. Cold snare polypectomy was performed. The polyp was completely removed and retrieved. * Medium internal hemorrhoids without stigmata of recent bleeding. Impression: 1. Normal colon and terminal ileum mucosa 2. Total of 1 polyp removed 3. Internal hemorrhoids Recommendations: - Follow path results. - Repeat colonoscopy in 7-10 years if polyp is an adenoma.
[2025-10-23 12:08] VITALS: BP 100/60; PULSE 63; RESP 12; TEMP 36.1; O2SAT 100
[2025-10-23 12:23] VITALS: BP 111/63; PULSE 65; RESP 14; TEMP 36.4; O2SAT 100
== END 2025-10-23 13:32 | disposition home or self-care (01) ==
PROVIDERS: PCP Student in an Organized Health Care Education/Training Program; Visit Provider Internal Medicine
PROC: 0DJD8ZZ Inspection of Lower Intestinal Tract, Via Natural or Artificial Opening Endoscopic (ICD-10-PCS; CPT 45378; principal; 2025-10-23 13:30)
DX: Z12.11 Encounter for screening for malignant neoplasm of colon (principal); Z83.718 Family history of other colon polyps; K64.8 Other hemorrhoids; D12.4 Benign neoplasm of descending colon
CPT/HCPCS: 45385; 88305; J2003; J2704

== ENCOUNTER → 2025-10-23 10:58 | Outpatient (BNV) | payer OTHER, SELFPAY | PROVIDERS: PCP Student in an Organized Health Care Education/Training Program; Visit Provider Internal Medicine | DX: Z12.11 Encounter for screening for malignant neoplasm of colon (principal); K63.5 Polyp of colon; K64.8 Other hemorrhoids | CPT/HCPCS: 45385 ==